=== PATIENT | male | born 1950 | race Caucasian/White ===

== ENCOUNTER 2018-06-30 16:58 | Emergency (ER) | payer MEDICARE ==
[2018-06-30 17:08] VITALS: BP 137/86; PULSE 91; RESP 18; TEMP 97.9
--- NOTE | 2018-06-30 17:44 | XR ---
EXAMINATION TYPE: XR foot complete RT DATE OF EXAM: 06/30/2018 CLINICAL HISTORY: Right foot pain with concern for foreign body. TECHNIQUE: Frontal, lateral, and oblique images of the right foot are obtained. COMPARISON: None FINDINGS: There is no acute fracture/dislocation evident in the right foot. The joint spaces in the right foot demonstrate arthropathy with joint space narrowing and marginal osteophytes. There is lat eral deviation of the third and fourth proximal phalanges without subluxation. Mild osseous deminera lization is also seen. The overlying soft tissue appears unremarkable. Small Achilles enthesophyte is present. No radiopaque foreign body identified. IMPRESSION: There is no acute fracture or dislocation in the right foot. No radiopaque foreign body is seen.
--- NOTE | 2018-06-30 18:05 | ED ---
Skin/Abscess/FB HPI - General Chief complaint: Skin/Abscess/Foreign Body Stated complaint: great toe pain Time Seen by Provider: 06/30/18 17:05 Source: patient Mode of arrival: ambulatory Limitations: no limitations - History of Present Illness Initial comments: Thisis a 68 yo male with PMH of hypertension and corns on feet b/l who present today for cc of lesion to plantar surface of the right great toe. Patient states that he has corns on his right feet and is often performing footcare grinding down the corns and calluses, he was doing this this morning when he felt a bump on his right great toe, he stated that it felt like a callus and he began picking at it and bled, and then he noticed a yellow core which she was able to pull out. Patient denies any surrounding erythema, diabetes, pain in the toe. Patient was concerned that maybe something had gotten there and came to the emergency department to be sure. Patient denies any numbness, tingling, paresthesias, loss of sensation or muscle weakness, patient denies pain in the right great toe, fever or chills. Upon presentation pt VS stable afebrile. Patient denies any recent fever, chills, shortness of breath, chest pain, back pain, abdominal pain, nausea or vomiting, numbness or tingling, dysuria or hematuria, constipation or diarrhea, headaches or visual changes, or any other complaints. - Related Data Allergies Allergy/AdvReac Type Severity Reaction Status Date / Time No Known Allergies Allergy Verified 06/30/18 17:04 Review of Systems ROS Statement: Those systems with pertinent positive or pertinent negative responses have been documented in the HPI. ROS Other: All systems not noted in ROS Statement are negative. Constitutional: Denies: fever, chills ENT: Denies: ear pain Respiratory: Denies: cough, dyspnea Cardiovascular: Denies: chest pain, palpitations Endocrine: Denies: fatigue Gastrointestinal: Denies: abdominal pain, nausea, vomiting, diarrhea, constipation Genitourinary: Denies: urgency, dysuria Musculoskeletal: Denies: joint swelling, arthralgia, myalgia Skin: Reports: as per HPI, lesions. Denies: rash, pruritus Neurological: Denies: headache, weakness, numbness, paresthesias, abnormal gait Past Medical History Past Medical History: Hypertension History of Any Multi-Drug Resistant Organisms: None Reported Past Surgical History: Appendectomy Past Psychological History: No Psychological Hx Reported Smoking Status: Never smoker Past Alcohol Use History: None Reported Past Drug Use History: None Reported General Exam - General Exam Comments Initial Comments: General: The patient is awake and alert, in no distress, and does not appear acutely ill. Eye: Pupils are equal, round and reactive to light, extra-ocular movements are intact. No nystagmus. There is normal conjunctiva bilaterally. No signs of icterus. Ears, nose, mouth and throat: There are moist mucous membranes and no oral lesions. Neck: The neck is supple, there is no tenderness or JVD. Cardiovascular: There is a regular rate and rhythm. No murmur, rub or gallop is appreciated. Respiratory: Lungs are clear to auscultation, respirations are non-labored, breath sounds are equal. No wheezes, stridor, rales, or rhonchi. Musculoskeletal: No overyling erythema, edema or soft tissue swelling of the right great toe. Normal ROM, no tenderness. Strength 5/5. Sensation intact. Pulses equal bilaterally 2+. Neurological: A&O x 3. CN II-XII intact, There are no obvious motor or sensory deficits. Coordination appears grossly intact. Speech is normal. Skin: Skin is warm and dry and no rashes. Half centimeter, circular hole in foot on the plantar surface of the right great toe, no evidence of foreign body or exposure of underlying structures. No evidence of thrombosed veins. Skin around circular hole is calloused. Psychiatric: Cooperative, appropriate mood & affect, normal judgment. Limitations: no limitations Course Vital Signs 06/30/18 17:04 Temperature 97.9 F Pulse Rate 91 Respiratory 18 Rate Blood Pressure 137/86 O2 Sat by Pulse 97 Oximetry Medical Decision Making - Medical Decision Making 68-year-old male with past medical history of cords presents today for chief complaint of lesion to the right plantar surface great toe. Physical examination findings and patient history at this time feel that this is a corn. It did not appear to be a plantars wart, there was no foreign body on x-ray or examination I have low suspicion for this at the time given patient denies pain or incidence of feeling a foreign body sensation. Patient has no history of peripheral neuropathy her diabetes. There is no evidence of secondary infection. The lesion was cleansed with sterile saline, irrigated and explored, bacitracin was applied and covered in sterile bandage. At this time feel patient is stable for discharge with follow-up with podiatry. Case is discussed in detail with Dr. Macias who agrees with impression and plan. Patient discharged in stable condition. Disposition Clinical Impression: [place] of toe Disposition: HOME SELF-CARE Condition: Good Additional Instructions: Please follow-up with podiatry or PCP in the next 2 days.. Please return to emergency room if the symptoms increase or worsen or for any other concerns including surrounding redness, fever or chills. Is patient prescribed a controlled substance at d/c from ED?: No Referrals: Yvan Richter DO [Primary Care Provider] - 1-2 days Emerson Mclean DPM [STAFF PHYSICIAN] - 1-2 days Time of Disposition: 18:05
== END 2018-06-30 18:21 | disposition home or self-care (01) ==
LOC: EC 16:58
DX: L84 Corns and callosities (principal)
CPT/HCPCS: 99283

== ENCOUNTER 2021-10-11 14:34 | Emergency (ER) | payer MEDICARE ==
[2021-10-11 16:29] VITALS: BP 125/85; PULSE 91; RESP 20; TEMP 98.5
--- NOTE | 2021-10-11 16:58 | XR ---
EXAMINATION TYPE: XR ankle complete LT, XR foot complete LT DATE OF EXAM: 10/11/2021 CLINICAL HISTORY: Fall injury with pain TECHNIQUE: Frontal, lateral and oblique images of the left ankle and foot are obtained. COMPARISON: None. FINDINGS: Osseous structures are demineralized. There is mild to moderate diffuse subcutaneous edema . Mild soft tissue swelling over the lateral malleolus. Slight bony nondisplaced fragmentation at lat eral malleolus is felt present. Ankle mortise symmetry appears within normal limits. There is no acute fracture or dislocation evident in the left foot. Some flexion of the toes is prese nt. The joint spaces in the left foot are preserved. Overlying soft tissue is unremarkable. IMPRESSION: Suspect nondisplaced acute avulsion type fracture from the lateral malleolus. Correlate c linically for point tenderness at this level.
[2021-10-11] MEDS ORDERED: ACET/COD 300 MG/30 MG STARTER PACK 6 TAB BTL PO STA (17:59)
--- NOTE | 2021-10-11 18:02 | ED ---
General Adult HPI - General Chief complaint: Extremity Injury, Lower Stated complaint: Needs xray left foot Time Seen by Provider: 10/11/21 17:36 Source: patient Mode of arrival: wheelchair Limitations: no limitations - History of Present Illness Initial comments: Dictation was produced using [employer] dictation software. please excuse any grammatical, word or spelling errors. Chief Complaint: 71-year-old male presents with left ankle injury History of Present Illness: This 71-year-old male who presents emergency problem left ankle injury. He was on a ladder when he was stepping down. He planted his left foot and because his ankle to twist. He thinks that he inverted. Patient states that he initially felt a lot of pain. He woke up this morning with worsening pain. Nose some bruising around his ankle. He came to the emergency department The ROS documented in this emergency department record has been reviewed and confirmed by me. Those systems with pertinent positive or negative responses have been documented in the HPI. All other systems are other negative and/or noncontributory. PHYSICAL EXAM: General Impression: Alert and oriented x3, not in acute distress HEENT: Normocephalic atraumatic, extra-ocular movements intact, pupils equal and reactive to light bilaterally, mucous membranes moist. Cardiovascular: Heart regular rate and rhythm Chest: Able to complete full sentences, no retractions, no tachypnea Motor: no focal deficits noted Neurological: CN II-XII grossly intact, no focal motor or sensory deficits noted Left ankle: Palpation over the lateral and medial malleolus, there is ecchymoses worse in the medial malleolus. Skin: Intact with no visualized rashes Psych: Normal affect and mood ED course: Is a 71-year-old male presents to emergency Department with left ankle injury. X-ray of the ankle and foot shows nondisplaced avulsion type fracture to the lateral malleolus. He also has physical exam findings of medial ankle sprain as well. Vital signs upon arrival are within acceptable limits. Patient placed in the left lower extremity splint. Patient given starter pack for Tylenol number threes. Advised follow-up with his primary care doctor. He states his primary care doctor is a [employer]. Patient is told to be weightbearing as tolerated. - Related Data Allergies Allergy/AdvReac Type Severity Reaction Status Date / Time No Known Allergies Allergy Verified 10/11/21 16:24 Review of Systems ROS Statement: Those systems with pertinent positive or pertinent negative responses have been documented in the HPI. ROS Other: All systems not noted in ROS Statement are negative. Past Medical History Past Medical History: Hypertension History of Any Multi-Drug Resistant Organisms: None Reported Past Surgical History: Appendectomy Past Psychological History: No Psychological Hx Reported Smoking Status: Never smoker Past Alcohol Use History: None Reported Past Drug Use History: None Reported General Exam Limitations: no limitations Course Vital Signs 10/11/21 16:25 Temperature 98.5 F Pulse Rate 91 Respiratory 20 Rate Blood Pressure 125/85 O2 Sat by Pulse 97 Oximetry Disposition Clinical Impression: Ankle sprain, Ankle fracture Disposition: HOME SELF-CARE Instructions (If sedation given, give patient instructions): Ankle Sprain (ED), Ankle Fracture (ED) Is patient prescribed a controlled substance at d/c from ED?: No Referrals: Yvan Richter DO [Primary Care Provider] - 1-2 days
== END 2021-10-11 18:15 | disposition home or self-care (01) ==
LOC: EC 14:34
DX: S82.92XA Unspecified fracture of left lower leg, initial encounter for closed fracture (principal); I10 Essential (primary) hypertension; W11.XXXA Fall on and from ladder, initial encounter; Y92.89 Other specified places as the place of occurrence of the external cause
CPT/HCPCS: 99283